=== PATIENT | male | born 1995 | race Caucasian/White ===

== ENCOUNTER 2018-11-20 16:36 | Emergency (ER) | payer SELFPAY ==
[~2018-11-20] VITALS: Ht 182.9 cm; Wt 81.7 kg
[2018-11-20] MEDS ORDERED: ULTRAM50 MG PO (18:29)
[2018-11-20] MEDS ORDERED: FLOMAX0.4 MG PO (18:29)
[2018-11-20] MEDS ORDERED: INDOMETHACIN50 MG PO (18:29)
== END 2018-11-20 18:57 | disposition home or self-care (01) ==
LOC: ED 16:36
DX: N20.0 Calculus of kidney (principal); Z87.442 Personal history of urinary calculi
CPT/HCPCS: 80053; 81001; 85025; 96374; 96375; 99284-25; J1885; J2405

== ENCOUNTER 2018-11-26 12:57 | Emergency (ER) | payer SELFPAY ==
[~2018-11-26] VITALS: Ht 182.9 cm; Wt 81.7 kg
[~2018-11-26 12:57] MED LIST: FLOMAX0.4 MG PO; INDOMETHACIN50 MG PO; ULTRAM50 MG PO
--- OUTSIDE RECORDS SUMMARY | 2018-11-26 13:00 | XMS ---
PreManage Notification: JOSH CRUZ Security Police Justice Events No recent Security Events currently on file CRITERIA MET - [facility] - 2 Visits in 30 Days CARE PROVIDERS There are no care providers on record at this time. Sera has no Care Guidelines for this patient. Vijaya VISIT COUNT (12 MO.) 2 [facility] TOTAL 2 NOTE: Visits indicate total known visits. ED/C VISIT TRACKING (12 MO.) 11/26/2018 12:57 [facility] [place] TYPE: Emergency COMPLAINT: - FLANK PAIN 11/20/2018 16:[address] [facility] [place] TYPE: Emergency COMPLAINT: - ABDOMINAL/FLANK PAIN DIAGNOSES: - Personal history of urinary calculi - Unspecified abdominal pain - Calculus of kidney INPATIENT VISIT TRACKING (12 MO.) No inpatient visits to display in this time frame [id number]
[2018-11-26] MEDS ORDERED: FLOMAX0.4 MG PO (16:46)
[2018-11-26] MEDS ORDERED: NORCO 5-325 TA1 EACH PO (16:46)
== END 2018-11-26 17:08 | disposition home or self-care (01) ==
LOC: ED 12:57
DX: N13.2 Hydronephrosis with renal and ureteral calculous obstruction (principal); Z87.442 Personal history of urinary calculi
CPT/HCPCS: 74176; 81001; 96361; 96374; 99284-25; J1885; J7030

== ENCOUNTER 2018-12-08 06:04 | Emergency (ER) | payer SELFPAY ==
[~2018-12-08] VITALS: Ht 182.9 cm; Wt 81.6 kg
[~2018-12-08 06:04] MED LIST changes: +NORCO 5-325 TA1 EACH PO
--- OUTSIDE RECORDS SUMMARY | 2018-12-08 06:06 | XMS ---
PreManage Notification: JOSH CRUZ Security Night Order Selector Events No recent Security Events currently on file CRITERIA MET - [facility] - [facility] - 2 Visits in 30 Days CARE PROVIDERS There are no care providers on record at this time. Sera has no Care Guidelines for this patient. Vijaya VISIT COUNT (12 MO.) 3 [facility] [place] [facility] TOTAL 3 NOTE: Visits indicate total known visits. ED/C VISIT TRACKING (12 MO.) 12/08/2018 06:[address] [facility] [address] [facility] [place] TYPE: Emergency COMPLAINT: - FLANK PAIN 11/26/2018 12:57 [facility] [place] TYPE: Emergency COMPLAINT: - FLANK PAIN DIAGNOSES: - Unspecified abdominal pain - Personal history of urinary calculi - Hydronephrosis with renal and ureteral calculous obstruction 11/20/2018 16:36 [facility] [place] TYPE: Emergency COMPLAINT: - ABDOMINAL/FLANK PAIN DIAGNOSES: - Personal history of urinary calculi - Unspecified abdominal pain - Calculus of kidney INPATIENT VISIT TRACKING (12 MO.) No inpatient visits to display in this time frame [id number]
[2018-12-08] MEDS ORDERED: NORCO 5-325 TA1 EACH PO (07:42)
== END 2018-12-08 07:55 | disposition home or self-care (01) ==
LOC: ED 06:04
DX: R10.9 Unspecified abdominal pain (principal); Z87.442 Personal history of urinary calculi
CPT/HCPCS: 74018; 80053; 81001; 85025; 96374; 96375; 99284-25; J1885; J2405; J7030

== ENCOUNTER 2019-01-01 01:00 | Emergency (ER) | payer SELFPAY ==
[~2019-01-01] VITALS: Ht 182.9 cm; Wt 66.7 kg
--- OUTSIDE RECORDS SUMMARY | 2019-01-01 01:02 | XMS ---
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 [place] - Has Care Guidelines - PDMP - [facility] - 2 Visits in 30 Days CARE PROVIDERS There are no care providers on record at this time. Sera has no Care Guidelines for this patient. Care History Medical/Surgical 12/11/2018 [facility] WRONG PHONE NUMBER Please update patient phone number when seen. CHW needs to contact patient E.D. VISIT COUNT (12 MO.) 4 [facility] H. TOTAL 4 NOTE: Visits indicate total known visits. ED/C VISIT TRACKING (12 MO.) 01/01/2019 01:00 [place] [place] COMPLAINT: - ABDOMINAL PAIN/NAUSEA 12/08/2018 06:04 [facility] [place]: [place] COMPLAINT: - FLANK PAIN DIAGNOSES: - Personal history of urinary calculi - Unspecified abdominal pain 11/26/2018 12:57 [facility] [place]: [place] COMPLAINT: - FLANK PAIN DIAGNOSES: - Unspecified abdominal pain - Personal history of urinary calculi - Hydronephrosis with renal and ureteral calculous obstruction 11/20/2018 16:[address] [facility] [place] TYPE: Emergency COMPLAINT: - ABDOMINAL/FLANK PAIN DIAGNOSES: - Personal history of urinary calculi - Unspecified abdominal pain - Calculus of kidney INPATIENT VISIT TRACKING (12 MO.) No inpatient visits to display in this time frame [id number]
== END 2019-01-01 02:59 | disposition home or self-care (01) ==
LOC: ED 01:00
DX: N13.2 Hydronephrosis with renal and ureteral calculous obstruction (principal)
CPT/HCPCS: 74176; 96361; 96374; 96375; 99284-25; J1885; J2270; J2405; J7030